=== PATIENT | male | born 1975 ===

== ENCOUNTER 2018-02-21 21:14 | Observation (INO) | payer OTHER, SELFPAY ==
--- NOTE | 2018-02-21 21:41 | ED PDOC ---
HPI: Skin/Bite Injury Time Seen by Provider: 02/21/18 21:32 Chief Complaint (Nursing): Abnormal Skin Integrity Chief Complaint (Provider): Itching, Rash History Per: Patient History/Exam Limitations: no limitations Current Symptoms Are (Timing): Still Present Additional Complaint(s): Marlon is a 42 y/o male who presents to the ED complaining of ongoing itching and rash on his face daily that improves with claritin. Today, he also noticed swelling on his chin that went away with Claritin. Patient denies current itchiness and has complaint of headache PMD: None Past Medical History Reviewed: Historical Data, Nursing Documentation, Vital Signs Vital Signs: Last Vital Signs Temp 98.3 F 02/21/18 21:21 Pulse 73 02/21/18 21:21 Resp 16 02/21/18 21:21 BP 108/59 L 02/21/18 21:21 Pulse Ox 100 02/21/18 21:42 - Family History Family History: States: Unknown Family Hx - Social History Alcohol: None - Home Medications Home Medications: Ambulatory Orders Medication Instructions Recorded Cephalexin [cephalexin] 500 mg PO QID #40 cap 08/08/16 Naproxen [Naprosyn] 500 mg PO Q12H #20 tab 08/08/16 - Allergies Allergies/Adverse Reactions: Allergies Allergy/AdvReac Type Severity Reaction Status Date / Time No Known Allergies Allergy Verified 02/21/18 21:21 Review of Systems ROS Statement: Except As Marked, All Systems Reviewed And Found Negative ENT: Positive for: Other (swelling on chin) Skin: Positive for: Rash, Other (itchiness) Physical Exam - Reviewed Nursing Documentation Reviewed: Yes Vital Signs Reviewed: Yes - Physical Exam Appears: Positive for: Well, Non-toxic, No Acute Distress Head Exam: Positive for: ATRAUMATIC, NORMAL INSPECTION, NORMOCEPHALIC Skin: Positive for: Jaundice (mild) Eye Exam: Positive for: EOMI, Normal appearance, PERRL ENT: Positive for: Normal ENT Inspection Neck: Positive for: Normal, Painless ROM Cardiovascular/Chest: Positive for: Regular Rate, Rhythm Respiratory: Positive for: CNT, Normal Breath Sounds Gastrointestinal/Abdominal: Positive for: Normal Exam, Soft Back: Positive for: Normal Inspection Extremity: Positive for: Normal ROM Neurologic/Psych: Positive for: Alert, Oriented - Laboratory Results Result Diagrams: 02/21/18 21:47 02/21/18 21:47 - ECG O2 Sat by Pulse Oximetry: 100 (RA) Pulse Ox Interpretation: Normal - Progress ED Course And Treament: HGB NOTED 6.8 LAST HGB 11.9 07/2016 BUT ALSO NOTED THAT HGB DROPS IN PAST TO 8.1. PATIENT STATES HE HAS NEVER RECEIVED BLOOD TRANSFUSION. NOTES HE HAS INTERMITTENT RECTAL BLEEDING WITH LAST EPISODE 2 WEEKS AGO. DENIES ANY SOB/CHEST PAIN. HAS MENTIONED URTICARIA AND HEADACHES. D/W DR. YAO. SEEN BY HIM IN ED. RECTAL EXAM WITH [employer] STAFFING ASSISTANT NO BLOOD/MELENA NOTED. MINIMAL STOOL IN VAULT. ONE SMALL TAG NOTED NOT ENLARGED HEMORRHOIDS. D/W GRAIN PACKER. WILL ADMIT FOR POSSIBLE INTERMITTENT GI BLEED AND ANEMIA. CONSENT FOR BLOOD OBTAINED BY ME; GRAIN PACKER WILL ORDER BLOOD TO TRANSFUSE AFTER EVALUATING PATIENT IN ED. Medical Decision Making Medical Decision Making: Time: 21:34 Initial Impression: Rash, Jaundice Initial Plan: --CMP --CBC --Urinalysis Scribe Attestation: Documented by Yaya Haq, acting as a scribe for Homa Pack PA-C Provider Scribe Attestation: All medical record entries made by the Scribe were at my direction and personally dictated by me. I have reviewed the chart and agree that the record accurately reflects my personal performance of the history, physical exam, medical decision making, and the department course for this patient. I have also personally directed, reviewed, and agree with the discharge instructions and disposition. Disposition - Clinical Impression Clinical Impression: Anemia, Rectal bleeding, Urticaria - Patient ED Disposition Is Patient to be Admitted: Yes - Disposition Disposition Time: 23:30 Condition: FAIR - Pt Status Changed To: Hospital Disposition Of: Observation
[2018-02-21 21:53] LABS: BASO % 0.6 % (0.0-2.0); EOS # 0.1 K/uL (0.0-0.7); EOS % 0.9 % (0.0-4.0); HEMOGLOBIN 6.8 g/dL (12.0-18.0); LYMPH # 1.3 K/uL (1.0-4.3); LYMPH % 19.7 % (20.0-40.0); MEAN CELL VOLUME 50.3 fl (80.0-94.0); MEAN CORPUSCULAR HEMOGLOBIN 13.8 pg (27.0-31.0); MEAN CORPUSCULAR HGB CONC 27.4 g/dL (33.0-37.0); MEAN PLATELET VOLUME 8.4 fl (7.2-11.7); MONO # 0.4 K/uL (0.0-0.8); NEUT # 4.6 K/uL (1.8-7.0); NEUT % 71.8 % (50.0-75.0); NRBC % 0.1 % (0.0-0.0); RBC 4.92 Mil/uL (4.40-5.90); RED CELL DISTRIBUTION WIDTH 20.7 % (11.5-14.5); WHITE BLOOD COUNT 6.4 K/uL (4.8-10.8)
[2018-02-21 22:39] LABS: ALB/GLOB RATIO 1.2 (1.0-2.1); ALBUMIN 4.3 g/dL (3.5-5.0); ALT/SGPT 32 U/L (21-72); AST/SGOT 57 U/L (17-59); BLOOD UREA NITROGEN 16 mg/dl (9-20); CALCIUM 8.9 mg/dL (8.4-10.2); GFR AFRICAN-AMERICAN > 60; GFR NON-AFRICAN AMERICAN > 60
[2018-02-21 23:07] LABS: URINE BILIRUBIN NEGATIVE (NEGATIVE); URINE BLOOD NEGATIVE (NEGATIVE); URINE CLARITY CLEAR (Clear); URINE COLOR YELLOW (YELLOW); URINE GLUCOSE (UA) NEG (Normal); URINE LEUKOCYTE ESTERASE NEG Leu/uL (Negative); URINE PROTEIN NEGATIVE (NEGATIVE); URINE UROBILINOGEN 0.2-1.0 mg/dL (0.2-1.0)
[2018-02-22] MEDS ORDERED: DiphenhydrAMINE 50 mg/ml Inj IVP ONE (00:36)
--- NOTE | 2018-02-22 00:42 | CP.PCM.HP ---
History of Present Illness - History of Present Illness History of Present Illness: 42 y/o male with PMHx of Hemorrhoids s/p repair around 4 years ago presents to ED complaining of possible allergic reaction. Patient states that 2 weeks ago after he ate Faroese he noticed swollen eyes, which resolved on its own, then 4 days ago he noticed swollen eyes again and hives like rash in his legs associated with mild itchy sensation, took claritin, and his symptoms resolved. The rash in his legs resolved 2 days ago as well as the swollen eyes. But today he woke up with swollen upper lip, and decided to come to ED for further evaluation. Also patient reports he was cleaning with Clorox without using any globes 6 days ago. Denies fevers, chills, difficulty breathing, wheezing, no rash at this eval, no other associated complains. Patient also has a h/o of rectal bleeding , possible 2/2 his hemorrhoids. He reports 4 rectal bleeding episodes 6 days ago, because he was straining with defecation. Patient reports having rectal bleeding for 3-4 days 2 months prior to the most recent episode. Denies dizziness, Cp, SOB, N/V, abdominal pain, LOC , unintentional weight loss, melena. Episodes describes as bright red blood on top of stools, and toilet paper. As per patient he had a colonoscopy done 10 years ago at [facility] for his h/o rectal bleeding, and was normal. PMD: last visit at [facility] on 10/2016 Full code allergies:NKDA Meds: claritin PRN FHx: Father: /unknown PMHX, Mother: Alive/Healthy, Sister: pancreatic cancer Shx: Appendectomy, Hemorrhoids Socialhx: Never smoker, denies etoh and illicit drugs Lives with ER course: VS: afebrile, no tachy, stable BP PE: swollen upper lip, pale skin labs:anemia Present on Admission - Present on Admission Any Indicators Present on Admission: No History of DVT/PE: No History of Uncontrolled Diabetes: No Urinary Catheter: No Decubitus Ulcer Present: No Review of Systems - Review of Systems All systems: reviewed and no additional remarkable complaints except (asper HPI) Past Patient History - Past Social History Alcohol: None - PSYCHIATRIC Hx Substance Use: No - SURGICAL HISTORY Hx Surgeries: No Meds Allergies/Adverse Reactions: Allergies Allergy/AdvReac Type Severity Reaction Status Date / Time No Known Allergies Allergy Verified 02/21/18 21:21 Physical Exam - Constitutional Appears: Non-toxic, No Acute Distress - Eye Exam Eye Exam: Normal appearance - ENT Exam ENT Exam: Mucous Membranes Moist - Respiratory Exam Respiratory Exam: Clear to Auscultation Bilateral, NORMAL BREATHING PATTERN. absent: Decreased Breath Sounds, Rales, Rhonchi, Wheezes, Respiratory Distress, Stridor - Cardiovascular Exam Cardiovascular Exam: REGULAR RHYTHM, RRR, +S1, +S2. absent: Bradycardia, Tachycardia - GI/Abdominal Exam GI & Abdominal Exam: Normal Bowel Sounds, Soft. absent: Distended, Guarding, Rebound, Rigid, Tenderness - Rectal Exam Additional comments: Buttonhole Tacker in room during rectal exam. No evidence of external hemorrhoids at this eval, no blood on gloves after digital exam. - Extremities Exam Extremities exam: Positive for: normal inspection. Negative for: calf tenderness, pedal edema - Back Exam Back exam: NORMAL INSPECTION. absent: CVA tenderness (L), CVA tenderness (R) - Neurological Exam Neurological exam: Alert, Oriented x3 - Psychiatric Exam Psychiatric exam: Normal Affect, Normal Mood - Skin Skin Exam: Dry, Intact, Pallor - Additional Findings Additional findings: swollen upper lips, no rash noted Results - Vital Signs Recent Vital Signs: Last Vital Signs Temp 98.3 F 02/21/18 21:21 Pulse 73 02/21/18 21:21 Resp 16 02/21/18 21:21 BP 108/59 L 02/21/18 21:21 Pulse Ox 100 02/21/18 23:49 - Labs Result Diagrams: 02/22/18 00:30 02/21/18 21:47 Labs: Laboratory Results - last 24 hr 02/21/18 02/21/18 02/21/18 21:47 21:47 22:02 WBC 6.4 RBC 4.92 Hgb 6.8 L D Hct 24.8 L MCV 50.3 L D MCH 13.8 L MCHC 27.4 L RDW 20.7 H Plt Count 404 H D MPV 8.4 Neut % (Auto) 71.8 Lymph % (Auto) 19.7 L [place] % (Auto) 7.0 Eos % (Auto) 0.9 Baso % (Auto) 0.6 Neut # (Auto) 4.6 Lymph # (Auto) 1.3 [place] # (Auto) 0.4 Eos # (Auto) 0.1 Baso # (Auto) 0.0 Sodium 143 Potassium 4.0 Chloride 100 Carbon Dioxide 27 Anion Gap 20 BUN 16 Creatinine 0.8 Est GFR ( Amer) > 60 Est GFR (Non-Af Amer) > 60 Random Glucose 113 H Calcium 8.9 Total Bilirubin 0.3 AST 57 ALT 32 Alkaline Phosphatase 57 Total Protein 7.8 Albumin 4.3 Globulin 3.6 Albumin/Globulin Ratio 1.2 Urine Color Yellow Urine Clarity Clear Urine pH 7.0 Ur Specific [place] 1.019 Urine Protein Negative Urine Glucose (UA) Neg Urine Ketones Negative Urine Blood Negative Urine Nitrate Negative Urine Bilirubin Negative Urine Urobilinogen 0.2-1.0 Ur Leukocyte Esterase Neg Urine RBC (Auto) 2 Urine Microscopic WBC < 1 BBK History Checked 02/21/18 23:48 WBC RBC Hgb Hct MCV MCH MCHC RDW Plt Count MPV Neut % (Auto) Lymph % (Auto) [place] % (Auto) Eos % (Auto) Baso % (Auto) Neut # (Auto) Lymph # (Auto) [place] # (Auto) Eos # (Auto) Baso # (Auto) Sodium Potassium Chloride Carbon Dioxide Anion Gap BUN Creatinine Est GFR ( Amer) Est GFR (Non-Af Amer) Random Glucose Calcium Total Bilirubin AST ALT Alkaline Phosphatase Total Protein Albumin Globulin Albumin/Globulin Ratio Urine Color Urine Clarity Urine pH Ur Specific [place] Urine Protein Urine Glucose (UA) Urine Ketones Urine Blood Urine Nitrate Urine Bilirubin Urine Urobilinogen Ur Leukocyte Esterase Urine RBC (Auto) Urine Microscopic WBC BBK History Checked No verified bt Assessment & Plan - Assessment and Plan (Free Text) Assessment: 42 y/o male with PMHx of Hemorrhoids admitted with anemia and lip swelling. Plan: Microcytic Hypochromic Anemia -MedSurg unit -most likely 2/2 chronic rectal bleeding -no evidence of active GI bleeding at this time -no evidence of external hemorrhoids in PExam at this time -patient has a h/o anemia since 2016/Iron deficiency anemia -H/H: 6.8/24.8 on admission -repeated H/H: 06/14.0 -will transfuse 2 units of PRBC -consent for Blood transfusion signed by patient (obtained by ER provider) -f/u Iron studies -f/u reticulocyte count -stool occult blood test in ER negative -will consider to test for thalassemia minor -as per pt he had a colonoscopy 10 years ago at [facility] and was normal -will need GI f/u as outpatient -consult GI if needed Upper lip swelling -unclear etiology, possible allergic reaction -stable, no evidence of respiratory distress or respiratory symptoms -give benadryl 25 mg IV once -prednisone 20 mg PO once -famotidine 20 mg IV once -re-assess H/O Hemorrhoids -no active bleeding at this time -will need lifestyles modification to prevent constipation -may need stool softener at discharge, miralax -last BM was yesterday and normal -consider GI f/u as outpatient DVT prophylaxis -SCDs -low risk for DVT, and recent rectal bleeding - Date & Time Date: 02/22/18 Time: 01:00
[2018-02-22 00:59] LABS: PARTIAL THROMBOPLASTIN TIME 28.6 Seconds (25.6-37.1); PROTHROMBIN TIME 11.5 Seconds (9.8-13.1)
[2018-02-22] MEDS ORDERED: DiphenhydrAMINE 50 mg/ml Inj ONE (01:14)
[2018-02-22 02:32] LABS: % IRON SATURATION 9 % (20-55); IRON < 10 ug/dL (49-181); TOTAL IRON BINDING CAPACITY 253 ug/dL (250-450)
--- NOTE | 2018-02-22 09:17 | CP.PCM.PN ---
Subjective - Date & Time of Evaluation Date of Evaluation: 02/22/18 Time of Evaluation: 07:25 Objective - Vital Signs/Intake and Output Vital Signs (last 24 hours): Temp Pulse Resp BP Pulse Ox 98.1 F 71 18 110/61 99 02/22/18 08:58 02/22/18 08:58 02/22/18 08:58 02/22/18 08:58 02/22/18 08:58 - Medications Medications: Current Medications Diphenhydramine HCl (Benadryl) 25 mg PO Q8 [facility] Prednisone (Prednisone Tab) 20 mg PO DAILY [facility] Last Admin: 02/22/18 01:17 Dose: 20 mg - Labs Labs: 02/22/18 00:30 02/21/18 21:47 PT 11.5 Seconds (9.8-13.1) 02/22/18 00:05 INR 1.0 (0.9-1.2) 02/22/18 00:05 APTT 28.6 Seconds (25.6-37.1) 02/22/18 00:05
[2018-02-22 12:42] VITALS: RESP 19
[2018-02-22 15:01] LABS: HEMOGLOBIN 8.9 g/dL (12.0-18.0); MEAN CELL VOLUME 55.2 fl (80.0-94.0); MEAN CORPUSCULAR HEMOGLOBIN 15.9 pg (27.0-31.0); MEAN CORPUSCULAR HGB CONC 28.7 g/dL (33.0-37.0); RBC 5.61 Mil/uL (4.40-5.90); WHITE BLOOD COUNT 8.3 K/uL (4.8-10.8)
[2018-02-22 16:16] VITALS: BP 116/64; PULSE 66; TEMP 98.1; O2SAT 95
--- NOTE | 2018-02-22 18:29 | CP.PCM.DIS ---
Provider - Provider Date of Admission: 02/21/18 23:32 Attending physician: Caroline Reddy MD Time Spent in preparation of Discharge (in minutes): 30 Diagnosis - Discharge Diagnosis (1) Anemia Status: Resolved Hospital Course - Lab Results Lab Results: Most Recent Lab Values WBC 8.3 K/uL (4.8-10.8) 02/22/18 14:30 RBC 5.61 Mil/uL (4.40-5.90) 02/22/18 14:30 Hgb 8.9 g/dL (12.0-18.0) L 02/22/18 14:30 Hct 30.9 % (35.0-51.0) L 02/22/18 14:30 MCV 55.2 fl (80.0-94.0) L D 02/22/18 14:30 MCH 15.9 pg (27.0-31.0) L 02/22/18 14:30 MCHC 28.7 g/dL (33.0-37.0) L 02/22/18 14:30 RDW 26.0 % (11.5-14.5) H 02/22/18 14:30 Plt Count 380 K/uL (130-400) 02/22/18 14:30 MPV 8.4 fl (7.2-11.7) 02/21/18 21:47 Neut % (Auto) 71.8 % (50.0-75.0) 02/21/18 21:47 Lymph % (Auto) 19.7 % (20.0-40.0) L 02/21/18 21:47 [place] % (Auto) 7.0 % (0.0-10.0) 02/21/18 21:47 Eos % (Auto) 0.9 % (0.0-4.0) 02/21/18 21:47 Baso % (Auto) 0.6 % (0.0-2.0) 02/21/18 21:47 Neut # (Auto) 4.6 K/uL (1.8-7.0) 02/21/18 21:47 Lymph # (Auto) 1.3 K/uL (1.0-4.3) 02/21/18 21:47 [place] # (Auto) 0.4 K/uL (0.0-0.8) 02/21/18 21:47 Eos # (Auto) 0.1 K/uL (0.0-0.7) 02/21/18 21:47 Baso # (Auto) 0.0 K/uL (0.0-0.2) 02/21/18 21:47 Retic Count 2.2 % (0.5-1.5) H D 02/22/18 01:50 PT 11.5 Seconds (9.8-13.1) 02/22/18 00:05 INR 1.0 (0.9-1.2) 02/22/18 00:05 APTT 28.6 Seconds (25.6-37.1) 02/22/18 00:05 Sodium 143 mmol/l (132-148) 02/21/18 21:47 Potassium 4.0 MMOL/L (3.6-5.0) 02/21/18 21:47 Chloride 100 mmol/L (98-107) 02/21/18 21:47 Carbon Dioxide 27 mmol/L (22-30) 02/21/18 21:47 Anion Gap 20 (10-20) 02/21/18 21:47 BUN 16 mg/dl (9-20) 02/21/18 21:47 Creatinine 0.8 mg/dl (0.8-1.5) 02/21/18 21:47 Est GFR ( Amer) > 60 02/21/18 21:47 Est GFR (Non-Af Amer) > 60 02/21/18 21:47 Random Glucose 113 mg/dL (75-110) H 02/21/18 21:47 Calcium 8.9 mg/dL (8.4-10.2) 02/21/18 21:47 Iron < 10 ug/dL (49-181) L 02/22/18 00:05 TIBC 253 ug/dL (250-450) 02/22/18 00:05 % Saturation 9 % (20-55) L 02/22/18 00:05 Transferrin 325.91 mg/dL (206-381) 02/22/18 01:50 Ferritin 2.4 ng/Ml (17.9-464) L 02/22/18 01:50 Total Bilirubin 0.3 mg/dl (0.2-1.3) 04/04/18 21:47 AST 57 U/L (17-59) 02/21/18 21:47 ALT 32 U/L (21-72) 02/21/18 21:47 Alkaline Phosphatase 57 U/L (38-126) 02/21/18 21:47 Total Protein 7.8 G/DL (6.3-8.2) 02/21/18 21:47 Albumin 4.3 g/dL (3.5-5.0) 02/21/18 21:47 Globulin 3.6 gm/dL (2.2-3.9) 02/21/18 21:47 Albumin/Globulin Ratio 1.2 (1.0-2.1) 02/21/18 21:47 Urine Color Yellow (YELLOW) 02/21/18 22:02 Urine Clarity Clear (Clear) 02/21/18 22:02 Urine pH 7.0 (5.0-8.0) 02/21/18 22:02 Ur Specific [place] 1.019 (1.003-1.030) 02/21/18 22:02 Urine Protein Negative mg/dL (NEGATIVE) 02/21/18 22:02 Urine Glucose (UA) Neg mg/dL (Normal) 02/21/18 22:02 Urine Ketones Negative mg/dL (NEGATIVE) 02/21/18 22:02 Urine Blood Negative (NEGATIVE) 02/21/18 22:02 Urine Nitrate Negative (NEGATIVE) 02/21/18 22:02 Urine Bilirubin Negative (NEGATIVE) 02/21/18 22:02 Urine Urobilinogen 0.2-1.0 mg/dL (0.2-1.0) 02/21/18 22:02 Ur Leukocyte Esterase Neg [place]/uL (Negative) 02/21/18 22:02 Urine RBC (Auto) 2 /hpf (0-3) 02/21/18 22:02 Urine Microscopic WBC < 1 /hpf (0-5) 02/21/18 22:02 Stool Occult Blood Negative (NEGATIVE) 02/22/18 01:15 Blood Type O POSITIVE 02/21/18 23:48 Blood Type Confirm O POSITIVE 02/22/18 02:50 Antibody Screen Negative 02/21/18 23:48 Crossmatch See Detail 02/21/18 23:48 BBK History Checked No verified bt 02/21/18 23:48 - Hospital Course Hospital Course: 42 y/o male with PMHx of Hemorrhoids s/p repair around 4 years ago presents to ED complaining of lip swelling x 1 day. On ED labs pt was found with H/H 7.0 and received 2 units of PRBC. Patient has a h/o of rectal bleeding , possible 2/ 2 his hemorrhoids. He reports 4 rectal bleeding episodes 6 days ago, because he was straining with defecation. As per patient he had a colonoscopy done 10 years ago at [facility] for his h/o rectal bleeding with Dr Webb and was normal. Patient condition improved and was discharged home in stable condition with instructions f/u with GI Dr Segundo on 02/26/18 at 1:30 pm, f/u with PCP at [facility] on 03/02/18 and f/u with Surgery Dr Smith. Provided with scrip for Feosol 325mg PO BID. Discharge Exam - Head Exam Head Exam: ATRAUMATIC, NORMAL INSPECTION, NORMOCEPHALIC - Eye Exam Eye Exam: EOMI, PERRL - ENT Exam ENT Exam: Mucous Membranes Moist - Respiratory Exam Respiratory Exam: Clear to PA & Lateral - Cardiovascular Exam Cardiovascular Exam: REGULAR RHYTHM, +S1, +S2 - GI/Abdominal Exam GI & Abdominal Exam: Normal Bowel Sounds, Soft. absent: Distended - Neurological Exam Neurological exam: Oriented x3 - Skin Skin Exam: Dry, Warm Discharge Plan - Discharge Medications Prescriptions: Ferrous Sulfate 325 mg PO BID 30 Days #60 tablet - Follow Up Plan Condition: FAIR Disposition: HOME/ ROUTINE Patient education suggested?: Yes Instructions: Blood Transfusion , Good Food Sources of Iron, Anemia Caused by Low Iron, Adult (DC), Bloody Stools, Adult (DC) Additional Instructions: Follow up on march 02 at 3:20pm with Dr. Crane Referrals: [facility] [Outside] Shamar Ivy MD [Medical Doctor] - Cali Smith MD [Staff Provider] -
[2018-02-23 14:56] LABS: ALBUMIN (PEP) 4.1 g/dL (3.8-4.8); ALPHA-1-GLOBULIN (PEP) 0.3 g/dL (0.2-0.3)
--- NOTE | 2018-02-23 18:18 | CARD ---
APPROVED REPORT EKG Measurement Heart [id number] <Conclusion> Sinus bradycardia Incomplete right bundle branch block Borderline ECG
== END 2018-02-22 17:25 | disposition home or self-care (01) ==
LOC: H.ER 21:14 → H.ERHOLD 23:32 → H.MEDSURG1 02-22 02:25
PROVIDERS: ADMIT Family Medicine Geriatric Medicine; ATTEND Family Medicine Geriatric Medicine
DX: D64.9 Anemia, unspecified (principal); L50.9 Urticaria, unspecified; R17 Unspecified jaundice; K62.5 Hemorrhage of anus and rectum; K64.9 Unspecified hemorrhoids
CPT/HCPCS: 36430; 80053; 81003; 82570; 82728; 83540; 83550; 84155; 84156; 84165; 84166; 84466; 85014; 85018; 85025; 85027; 85044; 85610; 85730; 86850; 86900; 86920; 87389; 93005; 96374; 96375; 99284; G0328; G0378; J1200; J1756; P9051

== ENCOUNTER 2018-03-22 09:59 | Day surgery (SDC) | payer SELFPAY ==
[2018-03-22 11:30] VITALS: BMI 24.5
[2018-03-22] MEDS ORDERED: Lactated Ringer's 500 ML IV ONE (11:34)
[2018-03-22] MEDS ORDERED: Propofol 10 mg/ml Inj (20 ML) ONE (13:19)
[2018-03-22 14:01] VITALS: BP 98/56; PULSE 74; RESP 18; TEMP 96.8; O2SAT 99
== END 2018-03-22 14:27 | disposition home or self-care (01) ==
LOC: H.ENDO 09:59
PROVIDERS: ATTEND Internal Medicine Gastroenterology
DX: R10.32 Left lower quadrant pain (principal); K62.89 Other specified diseases of anus and rectum; K64.1 Second degree hemorrhoids; K30 Functional dyspepsia; K44.9 Diaphragmatic hernia without obstruction or gangrene; K29.70 Gastritis, unspecified, without bleeding
CPT/HCPCS: 45380; 88305; J2001; J2704; J7120